=== PATIENT | female | born 1965 | race Two or more races ===

== ENCOUNTER 2018-02-21 13:31 | Emergency (ER) | payer BC ==
[~2018-02-21] VITALS: Ht 172.7 cm; Wt 65.6 kg
[2018-02-21] MEDS ORDERED: PERCOCET 5/31 TABLET PO (15:37)
[2018-02-21 16:30] VITALS: BP 130/70
== END 2018-02-21 17:05 | disposition home or self-care (01) ==
LOC: EME 13:31
PROC: 0RSKXZZ Reposition Left Shoulder Joint, External Approach (ICD-10-PCS; principal; 2018-02-21)
DX: S43.015A Anterior dislocation of left humerus, initial encounter (principal); W16.42XA Fall into unspecified water causing other injury, initial encounter; Y93.17 Activity, water skiing and wake boarding
CPT/HCPCS: 73030; 99281; 99284; J3010; S0020